=== PATIENT | female | born 1985 | race Caucasian/White ===

== ENCOUNTER 2024-12-23 08:14 | Day surgery (SDC) | payer BC ==
[2024-12-22 09:34] LABS: IMMATURE GRANULOCYTE ABSOLUTE 0.01 K/uL (0-1); NUCLEATED RED BLOOD CELLS 0.0 % (0.0-0.19); PLATELET COUNT (AUTO) 190 K/uL (130-400); RED BLOOD CELL COUNT(AUTO) 4.21 MIL/uL (4.00-5.50); RED CELL DISTRIBUTION WIDTH 13.7 % (11.0-15.5); WHITE BLOOD COUNT (AUTO) 6.2 K/uL (4.8-10.8)
[2024-12-22 09:43] VITALS: BP 111/76; PULSE 97; RESP 17; TEMP 98.1
[2024-12-22 09:47] LABS: CREATININE 0.8 mg/dL (0.5-1.0); GLOMERULAR FILTR. RATE CALC 97.0 mL/min (>90); GLUCOSE,RANDOM 124.0 mg/dL (70-105); SODIUM SERUM 138.0 mmol/L (136-145); UREA NITROGEN, BLOOD 11.0 mg/dL (7-18)
[2024-12-23] VITALS (17 sets, daily range): BP systolic 106–148; BP diastolic 62–89; PULSE 75–105; RESP 12–18; TEMP 97–97.8
[~2024-12-23] VITALS: Ht 170.2 cm; Wt 96.3 kg
[2024-12-23] MEDS: LACTATED RINGERS 1000ML 1,000 ML IV ONE (10:57)
[2024-12-23] MEDS ORDERED: LIDOCAINE PF 100MG/5ML (2%) SYRINGE 5ML ONE (11:14)
[2024-12-23] MEDS ORDERED: NEOSTIGMINE METHYLSULFATE 1MG/ML IV ONE (11:15)
[2024-12-23] MEDS ORDERED: GLYCOPYRROLATE 0.2 MG/ML 5 ML VIAL ONE (11:15)
[2024-12-23] MEDS ORDERED: SUCCINYLCHOLINE CHLORIDE 20 MG/ML 10 ML VIAL ONE (11:15)
[2024-12-23] MEDS ORDERED: MIDAZOLAM HCL 1 MG/ML 2ML VIAL ONE (11:16)
[2024-12-23] MEDS ORDERED: SUGAMMADEX SODIUM 200 MG/2 ML VIAL IV ONE (11:20)
--- NOTE | 2024-12-23 13:17 | OP ---
Operative Note: DATE OF PROCEDURE: 12/23/24 SURGEON: IRMA JAIN MD FINANCIAL ANALYSIS CONSULTANT: [na] ANESTHESIA: [general] ANESTHESIOLOGIST/PHOTOVOLTAIC INSTALLER: [general] PREOPERATIVE DIAGNOSIS: [desires sterility, desires ovarian cancer risk reduct ion] POSTOPERATIVE DIAGNOSIS: [same] SYNOPSIS: [na] PROCEDURE: [laparoscopic bilateral salpingectomy] ESTIMATED BLOOD LOSS: [minimal] INDICATIONS: [na] DESCRIPTION OF PROCEDURE: [The patient was visited alone in the holding area and the planned operation was stated in plain [place] and she had no additional questions and was ready to proceed. She was taken to the operating room and placed under general anesthesia and prepped and draped in the usual sterile fashion in the dorsal lithotomy position in the [facility] and her bladder was drained. A time out was taken to confirm the patient's identity, her allergies, the planned operation and the fact that no antibiotics were ordered. A weighted speculum was placed in the vagina and the cervix grasped with a single tooth tenaculum, the uterus sounded to about 8 cm and the humi manipulator was placed and the balloon inflated. The tenaculum and speculum were removed, the surgeon's gloves were changed and the patient was placed flat. Local was infiltrated infraumbilically and a 5 mm incision was made and the veress needle was passed, intraperitoneal placement was confirmed with sterile saline and the drop test and the abdomen was insufflated to a good dome of coo2 and the direct visualization trocar, sleeve and camera were introduced and no trauma was noted. The patient was placed in trendelenberg position enough to visualize the posterior upper uterus ovaries and tubes. Infiltration incision and placement of a right sided 8 mm and a left sided 5 mm trocar and sleeve was carried out atraumatically under direct visualization. First the right tube was tented up and it was severed from its mesenteric connections up to the uterus and it was excised flush with the uterus. It was attempted to be brought out through the 8 mm sleeve but it would not pass, the end of the tube protruding slightly beyond the edge ofthe sleeve and would not be pushed up with another instrument, the sleeve was removed, but the tubal end remained. It was pushed back into the abdomen and a 11 mm sleeve was placed, no 10 mm sleeve was available, and the remnant grasped and pulled into the sleeve and the sleeve was removed, the 8 was replaced. The left tube was excised in a similar manner. A simple cyst on the left ovary was punctured and drained using the harmonic. The 10 sleeve was replaced and the tube brought into the sleeve and the sleeve was removed. All was hemostatic at the conclusion, the abdomen was desufflated and the remaining sleeves were removed, the skin at all sites was closed with dermabond. The uterine manipulator was removed. The patient tolerated the procedure well, sponge, lap and instrument counts were all correct at the end of the case, the patient was awakened and taken to the recovery room in stable c ondition, the patient's designated contact was contacted with the patient's stability. The OR did not have a zero degree scope, did not notify this was the case and supplied a 30 degree scope, this hampered viewing and required different placement of the camera from usual to acquire adequate visualization to complete the case with interference with the surgeon's arm/instrument and made manipulation of the camera difficult for the family law legal assistant. ] irma jain md facog facs IRMA JAIN MD Dec 23, 2024 13:17
--- NOTE | 2024-12-23 14:20 | NUR ---
PATIENT ARRIVED TO DAY PATIENT FROM PACU VIA STRETCHER BY YUAN CHAPA. PATIENT AAOX3, VITAL SIGNS STABLE. INCISIONS X 3 TO ABDOMEN WITH DERMABOND, NO BLEEDING NOTED.
--- NOTE | 2024-12-23 15:10 | NUR ---
PATIENT DISCHARGED FROM FACILITY VIA WHEELCHAIR BY YUAN FREEMAN AND ASSISTED INTO PRIVATE VEHICLE DRIVEN BY FAMILY.
== END 2024-12-23 15:10 | disposition home or self-care (01) ==
LOC: DAH 08:14
PROVIDERS: ATTEND Obstetrics & Gynecology
DX: Z30.2 Encounter for sterilization (principal); Z79.899 Other long term (current) drug therapy; E66.9 Obesity, unspecified; Z68.32 Body mass index [BMI] 32.0-32.9, adult
CPT/HCPCS: 80048; 84703; 85025; 36415; 58661; 88302; A6260; A4663; J7030; A4351; J7120; J3010 ×3; J1100; J0330; J0665 ×2; J3490 ×2; J2003; J2250; J2704; J2405; J2710; C1769 ×3; A4649 ×2; A4930; A4215; A4213; A4222; A4221; A4216; A4223 ×2; A4600